=== PATIENT | female | born 1990 | race Two or more races ===

== ENCOUNTER 2016-07-30 18:27 | Emergency (ER) | payer OTHER ==
[2016-07-30 18:35] VITALS: TEMP 97.9; BMI 16.9
[2016-07-30 19:19] LABS: URINE APPEARANCE CLEAR; URINE BILIRUBIN NEGATIVE (NEGATIVE); URINE COLOR COLORLESS; URINE GLUCOSE (UA) NEGATIVE (NEGATIVE); URINE KETONE NEGATIVE (NEGATIVE); URINE LEUK ESTERASE NEGATIVE (NEGATIVE); URINE NITRITE NEGATIVE (NEGATIVE); URINE PROTEIN NEGATIVE (NEGATIVE); URINE UROBILINOGEN NEGATIVE E.U./dl (0.2-1.0)
[2016-07-30 19:20] LABS: URINE BLOOD 1+ (NEGATIVE)
[2016-07-30 19:25] LABS: URINE BACTERIA RARE /hpf (NONE SEEN); URINE RBC 3 /hpf (0-3); URINE WBC <1 /hpf (3-5)
--- NOTE | 2016-07-30 19:27 | PDOC ---
History of Present Illness - General History Source: Patient, Parent(s) Exam Limitations: No Limitations - History of Present Illness Initial Comments: 07/30/16 20:12 The patient is a 25-year old female, with a significant past medical history of anxiety and GERD (pantoprazole, non-compliant), who presents to the emergency department with left arm pain that began this morning. The patient states that the pain initially began in her left arm but progressed to her chest. She describes her chest pain as if heavy pressure were being applied. She states she has anxiety secondary to her arm and chest pain. She denies associated diaphoresis, palpitations, and shortness of breath. She reports that she presented to the ED 6 months ago with similar symptoms. She denies any changes in appetite and her last meal was dinner. 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 The patient states she went to her PCP yesterday for her anxiety, where she was prescribed Nadolol. She denies nausea, vomiting, diarrhea, and constipation. She denies fever, chills, cough, headache , and dizziness Allergies: Cephalexin monohydrate Past Surgical History: None reported. Social History: Non-smoker. Denies alcohol or drug use. PCP: Dr. Bonita Loya <Henry Webber - Last Filed: 07/30/16 20:59> <Adela Mckeon - Last Filed: 11/19/16 06:57> - General Chief Complaint: Chest Pain Stated Complaint: CHEST PAIN Time Seen by Provider: 07/30/16 19:23 Past History <Henry Webber - Last Filed: 07/30/16 20:59> - Past Medical History Other medical history: denies - Psycho/Social/Smoking Cessation Hx Anxiety: Yes Suicidal Ideation: No Smoking History: Never smoked Hx Alcohol Use: No Drug/Substance Use Hx: No Substance Use Type: None <Adela Mckeon - Last Filed: 11/19/16 06:57> - Past Medical History Allergies/Adverse Reactions: Allergies Allergy/AdvReac Type Severity Reaction Status Date / Time cephalexin monohydrate Allergy Verified 07/30/16 18:35 [From Keflex] Home Medications: Ambulatory Orders Lorazepam [Ativan] 0.5 mg PO BID PRN #10 tablet MDD 2 07/30/16 Multivitamin [Poly-Vitamin] 1 each PO DAILY 07/30/16 Review of Systems - Review of Systems Able to Perform ROS?: Yes Comments:: 07/30/16 20:13 GENERAL/CONSTITUTIONAL: No fever or chills. No weakness. HEAD, EYES, EARS, NOSE AND THROAT: No change in vision. No ear pain or discharge. No sore throat. CARDIOVASCULAR: +Chest pain. No shortness of breath. RESPIRATORY: No cough, wheezing, or hemoptysis. GASTROINTESTINAL: No nausea, vomiting, diarrhea or constipation. GENITOURINARY: No dysuria, frequency, or change in urination. MUSCULOSKELETAL: +Left arm pressure. No joint or muscle swelling or pain. No neck or back pain. SKIN: No rash NEUROLOGIC: No headache, vertigo, loss of consciousness, or change in strength/ sensation. ENDOCRINE: No increased thirst. No abnormal weight change. HEMATOLOGIC/LYMPHATIC: No anemia, easy bleeding, or history of blood clots. ALLERGIC/IMMUNOLOGIC: No hives or skin allergy. <Henry Webber - Last Filed: 07/30/16 20:59> *Physical Exam - Vital Signs Last Vital Signs Temp Pulse Resp BP Pulse Ox 97.9 F 96 H 18 126/85 98 07/30/16 18:33 07/30/16 19:49 07/30/16 19:49 07/30/16 19:49 07/30/16 19:49 - Physical Exam Comments: 07/30/16 20:14 GENERAL: The patient is awake, alert, and fully oriented, in no acute distress. HEAD: Normal with no signs of trauma. EYES: Pupils equal, round and reactive to light, extraoccular movements intact, sclera anticteric, conjunctiva clear with no pallor. ENT: Ears normal, nares patent, oropharynx clear without exudates. Moist mucous membranes. NECK: Normal range of motion, supple without lymphadenopathy, JVD, or masses. LUNGS: Breath sounds equal, clear to auscultation bilaterally. No wheeze/ crackles. HEART: Regular rate and rhythm, normal S1 and S2 without murmur or rub. ABDOMEN: Soft/nontender/nondistended. BS wnl. No guarding or rebound. No palpable masses. No hepatosplenomegaly. EXTREMITIES: Normal range of motion, no edema. No clubbing or cyanosis. No cords, erythema, or tenderness. NEUROLOGICAL: Cranial nerves II through XII grossly intact. Normal speech, normal gait. PSYCH: Normal mood, normal affect. SKIN: Warm, Dry, normal turgor, no rashes or lesions noted. <Aaron Webbershanelle - Last Filed: 07/30/16 20:59> - Vital Signs Last Vital Signs Temp Pulse Resp BP Pulse Ox 97.9 F 112 H 18 145/95 100 07/30/16 18:33 07/30/16 18:33 07/30/16 18:33 07/30/16 18:33 07/30/16 18:33 <Otilia Mckeonreen - Last Filed: 11/19/16 06:57> ED Treatment Course - LABORATORY CBC & Chemistry Diagram: 07/30/16 19:30 07/30/16 19:30 - ADDITIONAL ORDERS Additional order review: Laboratory Results 07/30/16 07/30/16 07/30/16 19:30 19:30 19:05 INR 1.09 Sodium 141 Potassium 4.0 Chloride 109 H Carbon Dioxide 25 Anion Gap 7 L BUN 8 Creatinine 0.6 Creat Clearance w eGFR > 60 Random Glucose 158 H Calcium 8.9 Total Bilirubin 0.2 AST 11 L ALT 15 Alkaline Phosphatase 62 Creatine Kinase 59 Troponin I < 0.02 Total Protein 8.1 Albumin 3.9 Total Amylase 103 Lipase 284 Urine Color Colorless Urine Appearance Clear Urine pH 7.0 Ur Specific [place] 1.004 Urine Protein Negative Urine Glucose (UA) Negative Urine Ketones Negative Urine Blood 1+ H Urine Nitrite Negative Urine Bilirubin Negative Urine Urobilinogen Negative Ur Leukocyte Esterase Negative Urine RBC 3 Urine WBC <1 Ur Epithelial Cells Rare Urine Bacteria Rare Urine HCG, Qual Negative 07/30/16 19:30 RBC 4.29 MCV 82.1 MCHC 32.7 RDW 15.2 MPV 7.4 L Neutrophils % 64.6 Lymphocytes % 28.4 Monocytes % 5.1 Eosinophils % 1.1 Basophils % 0.8 - Medications Given in the ED: ED Medications Discontinued Medications Generic Name Dose Route Start Last Admin Trade Name Freq PRN Reason Stop Dose Admin Lorazepam 0.5 mg 07/30/16 19:58 07/30/16 20:11 Ativan - PO 07/30/16 19:59 0.5 mg ONCE ONE Administration Sodium Chloride 500 ml 07/30/16 19:58 07/30/16 20:04 Normal Saline - IV 07/30/16 19:59 500 ml ONCE ONE Administration <Henry Webber - Last Filed: 07/30/16 20:59> - LABORATORY CBC & Chemistry Diagram: 07/30/16 19:30 07/30/16 19:30 - ADDITIONAL ORDERS Additional order review: Laboratory Results 07/30/16 19:05 Urine Color Colorless Urine Appearance Clear Urine pH 7.0 Ur Specific [place] 1.004 Urine Protein Negative Urine Glucose (UA) Negative Urine Ketones Negative Urine Blood 1+ H Urine Nitrite Negative Urine Bilirubin Negative Urine Urobilinogen Negative Ur Leukocyte Esterase Negative Urine HCG, Qual Negative <Adela Mckeon - Last Filed: 11/19/16 06:57> Medical Decision Making - Medical Decision Making 11/19/16 06:56 Pt comes with atypical CP and anxiety. CXR; EKG; LABS; UTOX and UA are all normal. FOllow up with medicine clinic or PMD as needed. <Adela Mckeon - Last Filed: 11/19/16 06:57> *DC/Admit/Observation/Transfer - Attestations Scribe Attestion: 07/30/16 20:14 Documentation prepared by Henry Webber, acting as emergency medical technician for Adela Mckeon MD. <Henry Webber - Last Filed: 07/30/16 20:59> - Discharge Dispostion Admit: No <Adela Mckeon - Last Filed: 11/19/16 06:57> Diagnosis at time of Disposition: Anxiety - Discharge Dispostion Disposition: HOME - Prescriptions Prescriptions: Lorazepam [Ativan] 0.5 mg PO BID PRN #10 tablet MDD 2 PRN Reason: Anxiety - Referrals Referrals: Jon Parekh MD [Primary Care Provider] - - Patient Instructions Printed Discharge Instructions: DI for Atypical Chest Pain, DI for Anxiety -- Adult
[2016-07-30 19:43] LABS: BASOPHIL 0.8 % (0-2.0); EOSINOPHIL 1.1 % (0-4.5); MCH 26.8 pg (25.7-33.7); MCHC 32.7 g/dl (32.0-36.0); MEAN CELL VOLUME 82.1 fl (80-96); MEAN PLT VOLUME 7.4 fl (7.5-11.1); NEUTROPHILS 64.6 % (42.8-82.8); PLATELET COUNT 372 K/MM3 (134-434); RDW 15.2 % (11.6-15.6); WHITE BLOOD COUNT 7.8 K/mm3 (4.0-10.0)
[2016-07-30 19:49] VITALS: BP 126/85; PULSE 96
[2016-07-30 19:53] LABS: INR 1.09 (0.82-1.09)
[2016-07-30] MEDS ORDERED: SODIUM CHLORIDE 0.9% 500 ML INFUS.BAG IV ONE (19:58)
[2016-07-30] MEDS ORDERED: LORazepam 0.5 MG TABLET PO ONE (19:58)
[2016-07-30 20:03] LABS: ALBUMIN 3.9 g/dl (3.4-5.0); AMYLASE 103 U/L (25-115); ANION GAP 7 (8-16); BILIRUBIN,TOTAL 0.2 mg/dL (0.2-1.0); CALCIUM 8.9 mg/dL (8.5-10.1); CO2 25 mmol/L (21-32); CREATININE 0.6 mg/dL (0.55-1.02); GLUCOSE,RANDOM 158 mg/dL (74-106); SGOT/AST 11 U/L (15-37); SGPT/ALT 15 U/L (12-78); TOT PROT 8.1 g/dl (6.4-8.2)
[2016-07-30] MEDS ORDERED: LORazepam 0.5 MG TABLET ONE (20:05)
[2016-07-30 20:06] LABS: ALK PHOS 62 U/L (45-117); TROPONIN I < 0.02 ng/ml (0.00-0.05)
[2016-07-30 21:16] LABS: URINE MARIJUANA THC NEGATIVE ng/ml (CUTOFF=50)
--- NOTE | 2016-07-31 11:23 | EKG ---
Test Reason : Blood Pressure : / mmHG Vent. Rate : 115 BPM Atrial Rate : 115 BPM P-R Int : 124 ms QRS Dur : 086 ms QT Int : 326 ms P-R-T Axes : 072 078 -08 degrees QTc Int : 450 ms SINUS TACHYCARDIA POSSIBLE LEFT ATRIAL ENLARGEMENT T WAVE ABNORMALITY, CONSIDER INFERIOR ISCHEMIA ABNORMAL ECG NO PREVIOUS ECGS AVAILABLE Confirmed by JIMENA CORNELL MD ([id number]) on 07/31/2016 11:22:59 AM Referred By: Confirmed By:JIMENA CORNELL MD
== END 2016-07-30 21:00 | disposition home or self-care (01) ==
LOC: JER 18:27
DX: R07.89 Other chest pain (principal); F41.9 Anxiety disorder, unspecified
CPT/HCPCS: 36415; 71020-TC; 80053; 80307; 81003; 81015; 82150; 82550; 83690; 84484; 84703; 85025; 85610; 93005; 93010; 99284-25

== ENCOUNTER 2016-12-26 19:43 | Emergency (ER) | payer OTHER ==
[2016-12-26 20:04] LABS: PH,URINE 6.5 (4.5-8); URINE APPEARANCE Clear; URINE BILIRUBIN Negative (NEGATIVE); URINE GLUCOSE (UA) Negative (NEGATIVE); URINE KETONE Negative (NEGATIVE); URINE LEUK ESTERASE Negative (NEGATIVE); URINE NITRITE Negative (NEGATIVE); URINE PROTEIN Negative (NEGATIVE); URINE UROBILINOGEN 0.2 E.U/dl (0.2-1.0)
[2016-12-26 20:12] LABS: URINE BLOOD Negative (NEGATIVE); URINE COLOR YELLOW
--- NOTE | 2016-12-26 20:27 | PDOC ---
History of Present Illness - General Chief Complaint: Urinary Problem Stated Complaint: BLOOD IN URINE, ABDOMINAL PAIN Time Seen by Provider: 12/26/16 19:48 - History of Present Illness Initial Comments: This 26-year-old woman with a history of GERD presents with epigastric pain that has been intermittent over the last week. She also had one episode of seeing blood in her urine today. She has no history of dysuria/hematuria in the past. She has no urinary frequency or urgency currently. She denies suprapubic or flank/CVA pain. Patient has been taking Protonix for the last 4 months for GERD. She has no history of endoscopy; diagnosis of GERD was made on clinical symptoms. LMP was 1 week ago and was normal in duration and flow. Patient states that she is under increased stress recently because she is studying for her [employer] which she will take next month (patient is a pharmacist) . She also admits to having a history of anxiety Patient was seen by her PMD approximately 2 weeks ago during which full laboratory evaluation was performed. According to the patient, all labs were normal. Past History - Past Medical History Allergies/Adverse Reactions: Allergies Allergy/AdvReac Type Severity Reaction Status Date / Time cephalexin monohydrate Allergy Verified 07/30/16 18:35 [From Keflex] Home Medications: Ambulatory Orders Lorazepam [Ativan] 0.5 mg PO BID PRN #10 tablet MDD 2 07/30/16 Multivitamin [Poly-Vitamin] 1 each PO DAILY 07/30/16 Dexlansoprazole [Dexilant] 60 mg PO DAILY #20 12/26/16 - Psycho/Social/Smoking Cessation Hx Anxiety: Yes Suicidal Ideation: No Smoking History: Never smoked Hx Alcohol Use: No Drug/Substance Use Hx: No Substance Use Type: None Review of Systems - Review of Systems Able to Perform ROS?: Yes Comments:: 12 point review of systems is negative except for what is noted in the history of present illness *Physical Exam - Physical Exam Comments: GENERAL: Adult female, alert and oriented 3, anxious but in no acute distress HEAD: Normal with no signs of trauma. EYES: PERRLA, EOMI, sclera anicteric, conjunctiva clear. ENT: Ears normal, nares patent, oropharynx clear without exudates. Moist mucous membranes. NECK: Normal range of motion, supple without lymphadenopathy, JVD, or masses. LUNGS: Breath sounds equal, clear to auscultation bilaterally. No wheezes, and no crackles. HEART:Regular rate and rhythm, normal S1 and S2 without murmur, rub or gallop. ABDOMEN:.normal bowel sounds. Mild tenderness in the upper epigastric area. No guarding or rebound.No masses No distention. EXTREMITIES: Normal range of motion, no edema. No clubbing or cyanosis. No erythema, or tenderness. NEUROLOGICAL: Cranial nerves II through XII grossly intact. Normal speech. No focal neurological deficits. MUSCULOSKELETAL: Back non-tender to palpation, no CVA tenderness SKIN: Warm, Dry, normal turgor, no rashes or lesions noted. ED Treatment Course - ADDITIONAL ORDERS Additional order review: Laboratory Results 12/26/16 19:50 Urine Color Yellow Urine Appearance Clear Urine pH 6.5 Ur Specific [place] <= 1.005 Urine Protein Negative Urine Glucose (UA) Negative Urine Ketones Negative Urine Blood Negative Urine Nitrite Negative Urine Bilirubin Negative Urine Urobilinogen 0.2 e.u/dl Ur Leukocyte Esterase Negative Urine HCG, Qual Negative Medical Decision Making - Medical Decision Making Urinalysis is normal without evidence of hematuria or other acute abnormalities. PGU is negative Exam shows mild tenderness in the upper portion of the epigastric region without peritoneal signs or masses. The remainder of the abdominal exam, as well as rest of the physical exam, is unremarkable. Clinical presentation most consistent with either GERD or a mild gastritis. Symptoms are likely particularly severe because patient has been stressed secondary to upcoming clinical board exam. The patient admits that she has a long history of anxiety. Although Protonix was effective when she first started taking it, she now has persistent break through pain. We will change the patient to Dexilant 60 mg daily and have her follow-up with her general doctor in the near future. If she develops severe abdominal pain,black stools, nausea/vomiting or fever, she should return to the ER *DC/Admit/Observation/Transfer Diagnosis at time of Disposition: Epigastric abdominal pain GERD (gastroesophageal reflux disease) Qualifiers: Esophagitis presence: esophagitis presence not specified Qualified Code(s): K21.9 - Gastro-esophageal reflux disease without esophagitis - Discharge Dispostion Disposition: HOME Condition at time of disposition: Stable - Prescriptions Prescriptions: Dexlansoprazole [Dexilant] 60 mg PO DAILY #20 cap.dr.bp - Referrals Referrals: Jon Parekh MD [Primary Care Provider] - - Patient Instructions Printed Discharge Instructions: DI for Gastroesophageal Reflux Disease (GERD) Additional Instructions: Stop Protonix Begin Dexilant 60 mg daily Follow-up with your general doctor within the next 5 days Return to ED if you have worsening abdominal pain or black stools Return to ED if you have flank/back pain or persistent blood in your urine
[2016-12-26 23:12] VITALS: BP 141/96; PULSE 79; TEMP 98.4; BMI 16.1
== END 2016-12-26 23:13 | disposition home or self-care (01) ==
LOC: FER 19:43
DX: R10.13 Epigastric pain (principal); K21.9 Gastro-esophageal reflux disease without esophagitis
CPT/HCPCS: 81003; 84703; 99281-25